=== PATIENT | male | born 1980 | race Two or more races ===

== ENCOUNTER 2016-08-15 23:59 | Emergency (ER) | payer SELFPAY ==
[~2016-08-15] VITALS: Ht 170.2 cm; Wt 72.6 kg
[2016-08-16] MEDS ORDERED: TdaP Vaccine 0.5ml Syr IM ONE (00:15)
[2016-08-16 00:48] VITALS: BP 126/75
--- NOTE | 2016-08-16 01:16 | Emergency Room Report ---
History of Present Illness General Chief Complaint: Multiple Trauma/Fall Source: Family Member Present Illness HPI Is a 35-year-old male presents with chief complaint of head injury and laceration. He was at a [employer] day and was drinking heavily. He came home and was walking up the steps and missed a step and fell forward. He sustained a laceration to his forehead. Unknown loss of consciousness. Patient is very intoxicated so history is through his family. No other injury. Allergies: Coded Allergies: UNABLE TO ASSESS (Unverified , 08/16/16) Patient History Past Medical History: see triage record, old chart reviewed Past Surgical History: other Pertinent Family History: none Social History: Reports: alcohol use Immunizations: other Reviewed Nursing Documentation: PMH: Agreed, PSxH: Agreed Nursing Documentation-PMH Past Medical History: No Stated History Review of Systems Eye: Denies: blurred vision, eye pain ENT: Denies: ear pain, nose congestion, throat swelling Respiratory: Denies: cough, shortness of breath Cardiovascular: Denies: chest pain, palpitations Gastrointestinal: Denies: abdominal pain, diarrhea, nausea, vomiting Musculoskeletal: Denies: back pain, joint pain Skin: Denies: rash Neurological: Denies: headache, numbness Endocrine: Denies: increased thirst, increased urine Hematologic/Lymphatic: Denies: easy bruising All Other Systems: negative except mentioned in HPI Physical Exam Vital Signs Date Time Temp Pulse Resp B/P Pulse Ox O2 Delivery O2 Flow Rate FiO2 08/16/16 00:00 98.1 104 15 151/95 97 Room Air vitals unremarkable except for hypertension Sp02 EP Interpretation: reviewed, normal General Appearance: well appearing, no apparent distress, alert Head: normocephalic, other - Hematoma and 2 and half centimeter laceration over the right forehead. Eyes: bilateral eye EOMI, bilateral eye PERRL ENT: hearing grossly normal, normal pharynx Neck: full range of motion, supple, no meningismus Respiratory: chest non-tender, lungs clear, normal breath sounds Cardiovascular #1: regular rate, rhythm, no murmur Gastrointestinal: normal bowel sounds, non tender, no mass, no organomegaly, no bruit, non-distended Musculoskeletal: back normal, normal range of motion Psychiatric: mood/affect normal Skin: warm/dry Procedures Laceration/Wound Repair Laceration/Wound Repair : Consent: Verbal Wound Location: face Wound's Depth, Shape: irregular, stellate Wound Length (cm): 2 Wound Explored: clean Irrigated w/ Saline (ccs): 1000 Betadine Prep?: No Anesthesia: 1% Lidocaine Volume Anesthetic (ccs): 3 Wound Repaired With: sutures Suture Size/Type: 4:0, other - Chromic Number of Sutures: 5 Patient Tolerated: Well Complications: None Medical Decision Making Diagnostic Impression: Primary Impression: Head injury, acute Qualified Codes: S09.90XA - Unspecified injury of head, initial encounter Additional Impression: Alcohol intoxication Qualified Codes: F10.120 - Alcohol abuse with intoxication, uncomplicated ER Course Patient with head injury secondary to alcohol the patient. No evidence of any fracture or bleed. We'll discharge to family. CT/MRI/US Diagnostic Results CT/MRI/US Diagnostic Results : Imaging Test Ordered: CT head and CT C-spine Impression CT head: Read by radiologist. No acute bleed. No fracture. CT C-spine: Read by radiologist. No fracture dislocation. Last Vital Signs Date Time Temp Pulse Resp B/P Pulse Ox O2 Delivery O2 Flow Rate FiO2 08/16/16 00:48 98.1 103 18 126/75 95 Room Air Status: improved Disposition: HOME, SELF-CARE Condition: Stable Additional Instructions: Abstain from drinking to excess. Followup with your Dr. in 2-3 days. Suture will fall out. Keep wound clean. Return if worse. JERICHO ZHU M.D. Aug 16, 2016 01:15
[2016-08-16 02:56] VITALS: BP 120/75
[2016-08-16 05:08] VITALS: BP 124/67
[2016-08-16 05:40] VITALS: BP 124/67
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
== END 2016-08-16 05:40 | disposition home or self-care (01) ==
LOC: EMR 08-16 00:20
DX: S09.90XA Unspecified injury of head, initial encounter (principal); S01.81XA Laceration without foreign body of other part of head, initial encounter; F10.120 Alcohol abuse with intoxication, uncomplicated; W01.198A Fall on same level from slipping, tripping and stumbling with subsequent striking against other object, initial encounter; Y93.9 Activity, unspecified; Y92.009 Unspecified place in unspecified non-institutional (private) residence as the place of occurrence of the external cause
CPT/HCPCS: 70450; 72125; 90471; 90715; 96372